=== PATIENT | male | born 1945 | race Caucasian/White ===

== ENCOUNTER 2019-03-11 04:55 | Inpatient (IN) | payer MEDICARE, BC ==
[2019-03-11] MEDS ORDERED: methylPREDNISolone Sod Succ/PF 125 MG/2 ML VIAL ONE (04:59)
[2019-03-11] MEDS ORDERED: diphenhydrAMINE 50 MG/ML VIAL ONE (04:59)
[2019-03-11] MEDS ORDERED: Famotidine/PF 20 mg/2ml Vial ONE (05:15)
[2019-03-11] MEDS ORDERED: EPINEPHrine 1 MG/ML AMP ONE (05:16)
[2019-03-11 06:08] LABS: Hemoglobin 17.2 g/dL (14.0-18.0); Mean Corpuscular HGB CONC 32.6 g/dL (32.0-36.0); Mean Corpuscular Hemoglobin 30.7 pg (27.0-31.0); Mean Corpuscular Volume 94.3 fL (78.0-98.0); Mean Platelet Volume 8.7 fL (7.4-10.4); Platelet Count 254 thou/uL (130-400); RBC Distribution Width 11.9 % (11.5-14.5); Red Blood Cell (RBC) Count 5.59 mill/uL (4.70-6.10); White Blood Cell (WBC) Count 15.7 thou/uL (4.8-10.8)
[2019-03-11 06:09] LABS: ALT (SGPT) 13 U/L (8-55); AST (SGOT) 13 U/L (5-34); Albumin 4.3 g/dL (3.4-4.8); Alkaline Phosphatase 100 U/L (40-110); Anion Gap 14 mmol/L (10-20); BUN (Urea Nitrogen) 12 mg/dL (8.4-25.7); Bilirubin, Total 1.1 mg/dL (0.2-1.2); Calc. Creatinine Clearance 0 mL/min (70-130); Calcium 9.6 mg/dL (7.8-10.44); Carbon Dioxide 19 mmol/L (23-31); Chloride 105 mmol/L (98-107); Estimated GFR-MDRD 56; Globulin 2.6 g/dL (2.4-3.5); Glucose 201 mg/dL (83-110); Potassium 4.7 mmol/L (3.5-5.1); Protein, Total 6.9 g/dL (5.8-8.1); Sodium 133 mmol/L (136-145)
[2019-03-11 06:31] LABS: Band 12 % (5-11); Lymphocytes 3 % (21-51); MDiff Complete? YES; Monocytes 6 % (0-10); Neutrophil 79 % (42-75)
[2019-03-11 10:30] VITALS: BMI 29.8
[2019-03-11] MEDS ORDERED: HumaLOG 300 UNITS/3 ML VIAL SC PRN ×2 (11:05)
[2019-03-11] MEDS ORDERED: Bisacodyl 10 MG SUPP PR PRN (11:05)
[2019-03-11] MEDS ORDERED: Acetaminophen 325 MG TAB PO PRN (11:05)
[2019-03-11] MEDS ORDERED: Senokot S 8.6-50 MG TAB PO PRN (11:05)
[2019-03-11] MEDS ORDERED: Dextrose 50% Abboject 50 ML SYRINGE SLOW IVP PRN (11:05)
[2019-03-11] MEDS ORDERED: Dextrose 5% in Water 1,000 ML IV PRN (11:05)
[2019-03-11] MEDS: Sodium Chloride 0.9% 1,000 ML IV SCH ×2 (12:01→22:13)
[2019-03-11] MEDS: diphenhydrAMINE 50 MG/ML VIAL IVP SCH ×3 (12:01→23:07)
[2019-03-11] MEDS: methylPREDNISolone Sod Succ 40 MG VIAL IVP SCH ×3 (12:02→23:09)
--- NOTE | 2019-03-11 13:59 | HP ---
REASON FOR ADMISSION: Angioedema. HISTORY OF PRESENTING ILLNESS: The patient gives history of developing hives in Tuesday morning. This was seen underneath both his arms, chest wall, torso, hips, and back of his legs. He took 2 tablets of Benadryl every 4 hours from Tuesday 11:00 a.m. He is taking it on the clock at 11:00 a.m., 03:00 p.m., 07:00 p.m., and 11:00 p.m. As his hives and itching got worse, he went to [facility] ER. He was given IV 1 short of steroids and was given prescriptions for Benadryl and Pepcid and sent home. After going home, the patient's lips and tongue started to swell up. His got concerned and around 04:30 a.m., the patient arrived at emergency room here. Currently, he is able to breathe well. He also ate his breakfast this morning. He has not started any new medications. He ate a mixture of new food, which was in a powder form, which is the only thing that he ate. The exact nature of the powder, the will bring the label. He also mentions that he has had similar symptoms 12 years back, but no tongue or lip swelling, that went away by itself. PAST MEDICAL AND SURGICAL HISTORY: 1. History of sensorineural deafness. 2. CABG for 5-vessel disease in 2009. 3. He has had 2 ablations for atrial fibrillation, one in 2011 and another in 2016. 4. Dyslipidemia. CURRENT MEDICATIONS: 1. Atorvastatin 40 mg p.o. at bedtime. 2. Aspirin 325 mg p.o. at bedtime. 3. CoQ10 of 200 mg p.o. daily. ALLERGIES: NO KNOWN DRUG ALLERGIES. PERSONAL HISTORY: Does not abuse alcohol or drugs. No history of smoking. He ambulates by himself. Lives with his . FAMILY HISTORY: Mother 12 hours after his likely from hemorrhage. Father at the age of 68 years, he in a correction, this happened while he was eating his lunch. CODE STATUS: Full. POWER OF DIETETIC TECHNICIAN REGISTERED: His . REVIEW OF SYSTEMS: CONSTITUTIONAL: Negative for weight loss or gain, ability to conduct usual activities. SKIN: Negative for rash, itching. EYES: Negative for double vision, pain. ENT/MOUTH: Negative for nose bleeding, neck stiffness, pain, tenderness. CARDIOVASCULAR: Negative for palpitations, dyspnea on exertion, orthopnea. RESPIRATORY: Negative for shortness of breath, wheezing, cough, hemoptysis, fever or night sweats. GASTROINTESTINAL: Negative for poor appetite, abdominal pain, heartburn, nausea, vomiting, constipation, or diarrhea. GENITOURINARY: Negative for urgency, frequency, dysuria, nocturia. MUSCULOSKELETAL: Negative for pain, swelling. NEUROLOGIC/PSYCHIATRIC: Negative for anxiety, depression. ALLERGY/IMMUNOLOGIC: Negative for skin rash, bleeding tendency. PHYSICAL EXAMINATION: GENERAL: The patient is a 74-year-old male, who is in moderate distress from itching. VITAL SIGNS: Blood pressure 160/94, pulse 98 per minute, respiratory rate 18 per minute, saturating 96% on room air, temperature is 98.6 degrees Fahrenheit. NECK: Supple. No elevated JVD. HEENT: Eyes; extraocular muscles intact. Pupils reacting to light. Oral cavity, mucous membranes are dry. There is swelling of tongue and both lips with mild swelling on the cheek. There is no swelling of uvula or posterior pharynx as far as I can see. CARDIOVASCULAR: S1, S2 heard. Regular rhythm. RESPIRATORY: Air entry 1+ bilateral. No rales or rhonchi. ABDOMEN: Soft. Bowel sounds heard. No tenderness, rigidity, or guarding. EXTREMITIES: No peripheral edema or calf tenderness. VASCULAR: Peripheral pulses 1+ bilateral. No ischemic ulcerations or gangrene. CENTRAL NERVOUS SYSTEM: No gross focal deficits noted. The patient is alert, awake, and oriented well. PSYCHIATRIC: The patient's mood is euthymic. No hallucinations or delusions. SKIN: The patient has urticarial lesions, urticarial wheals seen on the forehead, cheeks, anterior chest, lower back, underneath his axilla, and thighs at present. LABORATORY DATA: EKG done shows normal sinus rhythm at 97 beats per minute. White count of 15, H and H 17 and 52, platelet count 254, MCV is 94 with 79% neutrophils, 12% bands. Sodium 133, bicarb 19, BUN 12, creatinine 1.26, serum glucose 201. Troponin x1 negative. Liver enzymes within normal limits. Albumin 4.3. CLINICAL IMPRESSION AND PLAN: The patient will be admitted to telemetry under observation for severe urticaria with features of angioedema with lip and tongue swelling now. This likely might be related to the new powder that he ate the day before. He states he is not allergic to peanuts, but the powder had other ingredients in it. As far as he knows, he was not bitten by a bee or any other insects. He has not started any new medications. He has had similar episode 12 years back with no angioedema features. He will be on normal saline 100 mL/hour, Solu-Medrol 40 mg IV q.6 hourly, Benadryl 25 mg q.6 hourly, Pepcid 20 mg IV q.12 hourly. We will continue his home dose of Lipitor and CoQ10. He is currently maintaining airway and will be closely monitored for possible worsening, in which case he will be moved to ICU then. For now, we will monitor him on telemetry. Job ID: [id number]
[2019-03-11] MEDS: Famotidine/PF 20 mg/2ml Vial SLOW IVP SCH (20:17)
[2019-03-11] MEDS: Atorvastatin Calcium 40 MG TAB PO SCH (20:17)
[2019-03-12] MEDS: methylPREDNISolone Sod Succ 40 MG VIAL IVP SCH (05:07)
[2019-03-12] MEDS: diphenhydrAMINE 50 MG/ML VIAL IVP SCH (05:07)
[2019-03-12 06:21] LABS: Anion Gap 14 mmol/L (10-20); BUN (Urea Nitrogen) 22 mg/dL (8.4-25.7); Calc. Creatinine Clearance 63 mL/min (70-130); Calcium 8.9 mg/dL (7.8-10.44); Carbon Dioxide 21 mmol/L (23-31); Chloride 105 mmol/L (98-107); Estimated GFR-MDRD 51; Glucose 190 mg/dL (83-110); Potassium 5.2 mmol/L (3.5-5.1); Sodium 135 mmol/L (136-145)
[2019-03-12 06:30] LABS: Band 42 % (5-11); Hemoglobin 17.2 g/dL (14.0-18.0); Lymphocytes 14 % (21-51); MDiff Complete? YES; Mean Corpuscular HGB CONC 32.2 g/dL (32.0-36.0); Mean Corpuscular Hemoglobin 30.6 pg (27.0-31.0); Mean Platelet Volume 8.4 fL (7.4-10.4); Metamyelocyte 1 % (0-0); Monocytes 3 % (0-10); Myelocyte 1 % (0-0); Neutrophil 39 % (42-75); Platelet Count 272 thou/uL (130-400); RBC Distribution Width 12.1 % (11.5-14.5); Red Blood Cell (RBC) Count 5.63 mill/uL (4.70-6.10); White Blood Cell (WBC) Count 7.2 thou/uL (4.8-10.8)
[2019-03-12] MEDS: Sodium Chloride 0.9% 1,000 ML IV SCH (08:11)
[2019-03-12] MEDS: Famotidine/PF 20 mg/2ml Vial SLOW IVP SCH (09:20)
[2019-03-12] MEDS: Enoxaparin Sodium 40 MG/0.4 ML SYRINGE SC SCH (09:20)
[2019-03-12] MEDS: Ubidecarenone 50 MG CAP PO SCH (09:20)
[2019-03-12] MEDS ORDERED: predniSONE 20 MG TAB PO SCH (11:15)
--- NOTE | 2019-03-12 12:20 | PDOC.HOSPP ---
- Subjective Encounter Date: 03/12/19 Encounter Time: 09:45 Subjective: still has rash/ urticaria. No trouble swallowing or breathing lip and tongue swelling have come down - Objective Vital Signs & Weight: Vital Signs (12 hours) Temp Pulse Resp BP Pulse Ox 03/12/19 08:00 97.9 F 114 H 20 116/76 95 03/12/19 05:03 99.1 F 108 H 20 130/73 95 Weight Weight 208 lb I&O: 03/11/19 03/12/19 03/13/19 06:59 06:59 06:59 Intake Total 3909 557 Balance 3909 557 Result Diagrams: 03/12/19 05:38 03/12/19 05:38 Additional Labs: Accuchecks 03/12/19 03/11/19 03/11/19 10:35 20:39 16:45 POC Glucose 199 H 251 H 181 H Hospitalist ROS - Medication Medications: Active Medications Generic Name Dose Route Start Last Admin Trade Name Freq PRN Reason Stop Dose Admin Atorvastatin Calcium 40 mg 03/11/19 21:00 03/11/19 20:17 Lipitor PO 40 mg QPM JOSHUA Administration Coenzyme Q10 200 mg 03/12/19 09:00 03/12/19 09:20 Coenzyme Q10 PO 200 mg DAILY JOSHUA Administration Enoxaparin Sodium 40 mg 03/12/19 09:00 03/12/19 09:20 Lovenox SC 40 mg 0900 JOSHUA Administration - Exam General Appearance: awake alert Eye: PERRL, anicteric sclera Eye - other findings: facial edema+ ENT: no oropharyngeal lesions, moist mucosa Neck: supple, no JVD Heart: RRR, no murmur Respiratory: no wheezes, no rales Gastrointestinal: soft, non-tender, non-distended, normal bowel sounds Extremities: no cyanosis, no edema Skin - other findings: has urticarial rash over back, chest, axillae. Neurological: cranial nerve grossly intact, no focal deficits Psychiatric: normal affect, A&O x 3 Hosp A/P (1) Angioedema Code(s): T78.3XXA - ANGIONEUROTIC EDEMA, INITIAL ENCOUNTER Status: Acute Qualifiers: Encounter type: subsequent encounter Qualified Code(s): T78.3XXD - Angioneurotic edema, subsequent encounter (2) Urticaria Code(s): L50.9 - URTICARIA, UNSPECIFIED Status: Acute (3) CAD (coronary artery disease) Code(s): I25.10 - ATHSCL HEART DISEASE OF [place] CORONARY ARTERY W/O ANG PCTRS Status: Chronic Qualifiers: Coronary Disease-Associated Artery/Lesion type: bypass graft [place] vs. transplanted heart: [place] heart Associated angina: without angina Qualified Code(s): I25.810 - Atherosclerosis of coronary artery bypass graft(s) without angina pectoris (4) Dyslipidemia Code(s): E78.5 - HYPERLIPIDEMIA, UNSPECIFIED Status: Chronic - Plan on benadryl, pepcid and prednisone dc iv fluids needs close monitoring for airway continue home meds lipitor and Coq10. change status to inpatient To ambulate as tolerated
[2019-03-12] MEDS: diphenhydrAMINE 25 MG CAP PO SCH ×2 (14:41→20:28)
--- NOTE | 2019-03-12 14:41 | RAD ---
PORTABLE UPRIGHT FRONTAL CHEST RADIOGRAPH: 03/12/2019 HISTORY: Evaluate for pulmonary parenchymal infiltrate. COMPARISON: None. FINDINGS: The lungs are clear. The heart and mediastinal contours are unremarkable. Midline sternotomy wires ar e present. IMPRESSION: No acute findings. POS: [facility]
[2019-03-12] MEDS: Atorvastatin Calcium 40 MG TAB PO SCH (20:28)
[2019-03-12] MEDS: Famotidine 20 MG TAB PO SCH (20:28)
[2019-03-12] MEDS ORDERED: diphenhydrAMINE 25 MG CAP PO SCH (21:00)
[2019-03-13] MEDS ORDERED: predniSONE 20 MG TAB PO SCH (08:00)
[2019-03-13] MEDS: diphenhydrAMINE 25 MG CAP PO SCH (09:26)
[2019-03-13] MEDS: Enoxaparin Sodium 40 MG/0.4 ML SYRINGE SC SCH (09:26)
[2019-03-13] MEDS: Ubidecarenone 50 MG CAP PO SCH (09:26)
[2019-03-13] MEDS: Famotidine 20 MG TAB PO SCH (09:27)
[2019-03-13 12:14] VITALS: BP 114/57; TEMP 98.6
--- NOTE | 2019-03-13 18:04 | DIS ---
DATE OF ADMISSION: 03/11/2019 DATE OF DISCHARGE: 03/13/2019 DISCHARGE DISPOSITION: Home. PRIMARY DISCHARGE DIAGNOSIS: Angioedema with urticaria, resolving. SECONDARY DISCHARGE DIAGNOSES: Coronary artery disease and dyslipidemia. PROCEDURES DONE DURING HOSPITALIZATION: Chest x-ray done showed no acute cardiopulmonary abnormalities. Blood cultures x2, no growth. Urine culture, no growth. White count of 15 on arrival, discharge numbers of 7; H and H 17 and 53; platelet count 272. BUN 22, creatinine 1.3. DISCHARGE MEDICATIONS: 1. Atorvastatin 40 mg p.o. q.p.m. 2. CoQ10 of 200 mg p.o. daily. 3. Benadryl 25 mg p.o. three times daily for 3 days, then daily for 3 days, and to stop. 4. Pepcid 20 mg twice daily. 5. Prednisone 10 mg twice daily for 4 days, then daily for 5 days, then half a tablet for 4 days and to discontinue. ALLERGIES: NO KNOWN DRUG ALLERGIES. DISCHARGE PLAN: An appointment with Dr. Calderon Valadez, Allergy-pigment weigher has been set up on 03/27/2019 at 9 a.m. He needs to follow up with his primary care physician in 1 week. BRIEF COURSE DURING HOSPITALIZATION: The patient initially came in with complaints of severe itching with wheals and flare all over his body. The patient also developed lip edema and tongue swelling along with the inner cheek edema. He was maintaining his airway and was able to swallow. In view of this, he was admitted to telemetry. He has had close monitoring of his airway with no compromise noted. His tongue, cheek, and lip swelling have resolved. The patient's itching has come down. His wheal and flare and urticarial rash are also slowly resolving. He is given prescriptions for tapering prednisone and Benadryl. A new appointment with Allergy-pigment weigher, Dr. Calderon Valadez has been set up on the at 9 a.m. in March. He has to be off Benadryl for at least 5 to 7 days prior to going for the appointment. He is hemodynamically stable and will be shortly discharged home. Please note, I have seen and examined the patient on the day of discharge. Job ID: [id number]
[2019-03-14 23:07] LABS: Mycoplasma pneumoniae IgG AB 384 U/mL (0-99); Mycoplasma pneumoniae IgM AB Less than 770 U/mL (0-769)
== END 2019-03-13 13:01 | disposition home or self-care (01) | DRG 916 ==
LOC: ERS 04:55 → 2SW 08:10 → OBSVTOIN 08:10
PROVIDERS: ADMIT Internal Medicine; ATTEND Internal Medicine
DX: T78.3XXA Angioneurotic edema, initial encounter (principal); I25.10 Atherosclerotic heart disease of native coronary artery without angina pectoris; E78.5 Hyperlipidemia, unspecified; I48.91 Unspecified atrial fibrillation; Z95.1 Presence of aortocoronary bypass graft
CPT/HCPCS: 36415; 36416; 71045; 80048; 80053; 84484; 85025; 87040; 87086; 93005; 96372; 96374; J0171; J1200; J1650; J2920; J2930; J7512; Q0163; S0028

== ENCOUNTER 2020-07-11 10:51 | Observation (INO) | payer BC, MEDICARE ==
[2020-07-11] MEDS ORDERED: Diazepam 5 MG TAB ONE (11:19)
[2020-07-11] MEDS ORDERED: Meclizine HCl 25 MG TAB ONE (11:20)
[2020-07-11 11:27] LABS: #Basophils 0.1 thou/uL (0.0-0.2); #Eosinphils 0.2 thou/uL (0.0-0.7); #Lymphocytes 2.1 thou/uL (1.20-3.40); #Monocytes 0.7 thou/uL (0.11-0.59); #Neutrophils 5.4 thou/uL (1.40-6.50); %Eosinophils 2.4 % (0.0-10.0); %Lymphocytes 24.5 % (21.0-51.0); Hemoglobin 15.3 g/dL (14.0-18.0); Mean Corpuscular HGB CONC 33.9 g/dL (32.0-36.0); Mean Corpuscular Hemoglobin 31.9 pg (27.0-31.0); Mean Corpuscular Volume 94.1 fL (78.0-98.0); Platelet Count 224 thou/uL (130-400); RBC Distribution Width 11.6 % (11.5-14.5); Red Blood Cell (RBC) Count 4.79 mill/uL (4.70-6.10); White Blood Cell (WBC) Count 8.4 thou/uL (4.8-10.8)
[2020-07-11 11:49] LABS: ALT (SGPT) 13 U/L (8-55); AST (SGOT) 16 U/L (5-34); Albumin 3.8 g/dL (3.4-4.8); Alkaline Phosphatase 85 U/L (40-110); Anion Gap 18 mmol/L (10-20); BUN (Urea Nitrogen) 17 mg/dL (8.4-25.7); Bilirubin, Total 0.8 mg/dL (0.2-1.2); Calc. Creatinine Clearance 0 mL/min (70-130); Calcium 8.8 mg/dL (7.8-10.44); Carbon Dioxide 19 mmol/L (23-31); Chloride 104 mmol/L (98-107); Globulin 2.8 g/dL (2.4-3.5); Glucose 209 mg/dL (83-110); Potassium 3.9 mmol/L (3.5-5.1); Protein, Total 6.6 g/dL (5.8-8.1); Sodium 137 mmol/L (136-145)
--- NOTE | 2020-07-11 13:50 | CT ---
CT BRAIN NONCONTRAST: DATE: 07/11/2020 HISTORY: 75-year-old male with dizziness, nausea, vomiting, and generalized weakness. FINDINGS: There is no evidence of acute intra-axial or extra-axial hemorrhage. There is no midline shift or any other mass effect. There is no extra-axial fluid collection. There is no evidence of obstructive hydrocephalus. Calvarium is intact. IMPRESSION: No acute intracranial findings.
[2020-07-11] MEDS ORDERED: Acetaminophen 325 MG TAB PO PRN (15:03)
[2020-07-11] MEDS ORDERED: Ondansetron PF 4 MG/2 ML Vial IVP PRN (15:03)
[2020-07-11 15:51] VITALS: BMI 29.7
--- NOTE | 2020-07-11 16:12 | PDOC.HHP ---
Hospitalist HPI Weakness, dizziness History of Present Illness: Patient is 75-year-old male with PMH of CAD and A. fib (s/p cardiac ablation x2) who presents to the ED with CC of dizziness and generalized weakness. Patient states he was sitting this morning and drinking coffee and eating cinnamon roll for his breakfast when he started feeling generally weak, clammy, and dizzy. He also had few episodes of nausea and vomiting afterwards. He states the room was not spinning but just felt "woozy". He denies headache, fever, chest pain, or shortness of breath. Allergies/Adverse Reactions: Allergy/AdvReac Type Severity Reaction Status Date / Time No Known Allergies Allergy Verified 08/05/19 18:03 Home Medications: Medication Instructions Recorded Confirmed Type Atorvastatin Calcium [Lipitor] 40 mg PO QPM 11/01/15 07/11/20 History Ubidecarenone [Co Q-10] 200 mg PO DAILY 11/01/15 07/11/20 History Aspirin [Ben Chewable] 81 mg PO QPM 07/11/20 07/11/20 History Cholecalciferol (Vitamin D3) 5,000 unit PO DAILY 07/11/20 07/11/20 History [Vitamin D3] Past History: PMHx: CAD and A. fib (s/p cardiac ablation x2) PShx: CABG, Cardiac ablation Family hx: Maternal grandfather: CAD Shx: Never smoker. Mike alcohol or drug use Hospitalist HPI ROS Constitutional: reports: chills. denies: fever Eyes: denies: vision change ENT: denies: throat pain Respiratory: denies: cough, shortness of breath Cardiovascular: denies: chest pain Gastrointestinal: reports: nausea, vomiting Genitourinary: denies: dysuria, frequency Musculoskeletal: denies: back pain Skin: denies: rash Neurological: reports: weakness Hospitalist Exam Vitals: Weight Weight 207 lb 11.2 oz Hospitalist Results Result Diagrams: 07/11/20 11:15 07/11/20 11:15 Lab results: Laboratory Last Values WBC 8.4 thou/uL (4.8-10.8) 07/11/20 11:15 RBC 4.79 mill/uL (4.70-6.10) 07/11/20 11:15 Hgb 15.3 g/dL (14.0-18.0) 07/11/20 11:15 Hct 45.0 % (42.0-52.0) 07/11/20 11:15 MCV 94.1 fL (78.0-98.0) 07/11/20 11:15 MCH 31.9 pg (27.0-31.0) H 07/11/20 11:15 MCHC 33.9 g/dL (32.0-36.0) 07/11/20 11:15 RDW 11.6 % (11.5-14.5) 07/11/20 11:15 Plt Count 224 thou/uL (130-400) 07/11/20 11:15 MPV 8.0 fL (7.4-10.4) 07/11/20 11:15 Neutrophils % 64.0 % (42.0-75.0) 07/11/20 11:15 Lymphocytes % 24.5 % (21.0-51.0) 07/11/20 11:15 Monocytes % 8.0 % (0.0-10.0) 07/11/20 11:15 Eosinophils % 2.4 % (0.0-10.0) 07/11/20 11:15 Basophils % 1.0 % (0.0-1.0) 07/11/20 11:15 Neutrophils # 5.4 thou/uL (1.40-6.50) 07/11/20 11:15 Lymphocytes # 2.1 thou/uL (1.20-3.40) 07/11/20 11:15 Monocytes # 0.7 thou/uL (0.11-0.59) H 07/11/20 11:15 Eosinophils # 0.2 thou/uL (0.0-0.7) 07/11/20 11:15 Basophils # 0.1 thou/uL (0.0-0.2) 07/11/20 11:15 Sodium 137 mmol/L (136-145) 07/11/20 11:15 Potassium 3.9 mmol/L (3.5-5.1) 07/11/20 11:15 Chloride 104 mmol/L (98-107) 07/11/20 11:15 Carbon Dioxide 19 mmol/L (23-31) L 07/11/20 11:15 Anion Gap 18 mmol/L (10-20) 07/11/20 11:15 BUN 17 mg/dL (8.4-25.7) 07/11/20 11:15 Creatinine 1.19 mg/dL (0.7-1.3) 07/11/20 11:15 Estimated GFR (MDRD) 59 07/11/20 11:15 Glucose 209 mg/dL (83-110) H 07/11/20 11:15 POC Glucose 113 mg/dL (70-100) H 07/11/20 15:03 Calcium 8.8 mg/dL (7.8-10.44) 07/11/20 11:15 Total Bilirubin 0.8 mg/dL (0.2-1.2) 07/11/20 11:15 AST 16 U/L (5-34) 07/11/20 11:15 ALT 13 U/L (8-55) 07/11/20 11:15 Alkaline Phosphatase 85 U/L (40-110) 07/11/20 11:15 Troponin I Less than 0.010 ng/mL (< 0.028) 07/11/20 11:15 Serum Total Protein 6.6 g/dL (5.8-8.1) 07/11/20 11:15 Albumin 3.8 g/dL (3.4-4.8) 07/11/20 11:15 Globulin 2.8 g/dL (2.4-3.5) 07/11/20 11:15 Albumin/Globulin Ratio 1.4 g/dL (1.2-2.2) 07/11/20 11:15 CT scan - head Additional Comments: CT BRAIN NONCONTRAST: DATE: 07/11/2020 HISTORY: 75-year-old male with dizziness, nausea, vomiting, and generalized weakness. FINDINGS: There is no evidence of acute intra-axial or extra-axial hemorrhage. There is no midline shift or any other mass effect. There is no extra-axial fluid collection. There is no evidence of obstructive hydrocephalus. Calvarium is intact. IMPRESSION: No acute intracranial findings EKG Status: image reviewed by me (NSR. Vent rate: 74) Hospitalist H&P A/P (1) Dizziness Code(s): R42 - DIZZINESS AND GIDDINESS Status: Acute Assessment and Plan: Patient presented with dizziness. CT head showed no acute intracranial abnormalities. EKG showed NSR. Per ED physician, patient's HR at times went down to the 50s while in the ED. Plan: -Telemetry -Orthostatic vitals -MRI brain wo contrast -Echo (2) Hyperglycemia Code(s): R73.9 - HYPERGLYCEMIA, UNSPECIFIED Status: Acute Assessment and Plan: Initial BG elevated, patient has no hx of diabetes. Repeat one was better without treatment. Plan: -Hgb A1c (3) A-fib Code(s): I48.91 - UNSPECIFIED ATRIAL FIBRILLATION Status: Chronic Assessment and Plan: Currently NSR with controlled rate. He is on Aspirin. Not on rate controlling med Plan: -cont Aspirin
[2020-07-11] MEDS ORDERED: Atorvastatin Calcium 40 MG TAB PO SCH (21:00)
[2020-07-11 22:21] LABS: SARS-CoV-2 PCR by NAA Not Detected (NotDetected)
[2020-07-12 00:17] LABS: Troponin I 0.011 ng/mL (< 0.028)
[2020-07-12 04:36] LABS: #Basophils 0.1 thou/uL (0.0-0.2); #Eosinphils 0.1 thou/uL (0.0-0.7); #Lymphocytes 2.9 thou/uL (1.20-3.40); #Monocytes 0.8 thou/uL (0.11-0.59); #Neutrophils 6.8 thou/uL (1.40-6.50); %Basophils 0.7 % (0.0-1.0); %Eosinophils 1.1 % (0.0-10.0); %Lymphocytes 27.3 % (21.0-51.0); %Monocytes 7.2 % (0.0-10.0); %Neutrophils 63.8 % (42.0-75.0); Mean Corpuscular HGB CONC 33.8 g/dL (32.0-36.0); Mean Corpuscular Volume 94.7 fL (78.0-98.0); Mean Platelet Volume 8.8 fL (7.4-10.4); Platelet Count 221 thou/uL (130-400); RBC Distribution Width 11.6 % (11.5-14.5); Red Blood Cell (RBC) Count 4.67 mill/uL (4.70-6.10); White Blood Cell (WBC) Count 10.7 thou/uL (4.8-10.8)
[2020-07-12 04:47] LABS: Hemoglobin A1c 5.4 % (4.0-6.0)
[2020-07-12 05:03] LABS: Anion Gap 14 mmol/L (10-20); BUN (Urea Nitrogen) 13 mg/dL (8.4-25.7); Calc. Creatinine Clearance 85 mL/min (70-130); Carbon Dioxide 22 mmol/L (23-31); Chloride 107 mmol/L (98-107); Glucose 101 mg/dL (83-110); Potassium 4.2 mmol/L (3.5-5.1); Sodium 139 mmol/L (136-145)
[2020-07-12] MEDS ORDERED: Aspirin 81 mg Enteric Coated Tablet PO SCH (09:00)
[2020-07-12] MEDS ORDERED: Enoxaparin Sodium 30 MG/0.3 ML SYRINGE SC SCH (09:00)
--- NOTE | 2020-07-12 13:03 | MRI ---
EXAM: MRI Brain WO Con PROVIDED CLINICAL HISTORY: Dizziness COMPARISON: None FINDINGS: The ventricular system appears normal in size and morphology. There is no evidence for intracranial h emorrhage, mass or mass effect. There is no evidence for restricted diffusion to suggest recent infarction. Appropriate flow voids are seen within the major intracranial vessels. The extracranial s oft tissues and calvarial marrow signal appear unremarkable. IMPRESSION: No evidence for an acute intracranial abnormality.
--- NOTE | 2020-07-12 14:36 | PDOC.DS.DS ---
Provider Date of Admission: 07/11/20 13:15 Date of Discharge: 07/12/20 Admitting Provider: Josy Rodrigues MD Consultations: None Course Hospital Course: Patient is a pleasant 75 years old gentleman who has significant past medical history of CAD with status post CABG, paroxysmal atrial fib with status post cardiac ablation x2, the last one was in 2016, and dyslipidemia, who presented to ED with complaint of acute onset of dizziness, and generalized weakness. Patient subsequently had several episodes of vomiting. There was no focal weakness, or dysarthria. He was brought in to the ED for further evaluation. Given his symptomatology, he was subsequently admitted for further stroke work-up. He was monitored on telemetry, serial cardiac enzyme was negative. His Echo showed preserved EF, chronic diastolic heart failure, no evidence of volume overload. Further stroke work-up was unremarkable including negative MRI. His symptom was resolved since he was admitted. He was monitoring telemetry, no evidence of arrhythmia. His hemoglobin A1c was 5.4. He is tolerating diet. No recurrent symptoms. He has been ambulating well. He has been followed by Dr. Woodward from cardiology. At this time, patient is stable to discharge home, and follow-up with his PCP/cardiology for ongoing management medical mgt. Pertinent Studies: 2D echo also left ventricular size normal on. Normal left ventricular wall thickness. Ejection fraction, 60-65%. Grade 2/3 diastolic dysfunction. No regional wall motion abnormalities. MRI of the brain negative for acute intracranial abnormalities CT head: No acute intracranial findings Resuscitation Status: 07/11/20 15:03 Resuscitation Status Routine Resuscitation Status: FULL: Full Resuscitation Discussed with: Patient Lab Results: 07/12/20 03:51 07/12/20 03:51 Abnormal Lab Results - Last 48 hrs 07/11/20 11:15: MCH 31.9 H, Monocytes # 0.7 H 07/11/20 11:15: Carbon Dioxide 19 L 07/12/20 03:51: Carbon Dioxide 22 L 07/12/20 03:51: RBC 4.67 L, MCH 32.0 H, Neutrophils # 6.8 H, Monocytes # 0.8 H Vitals: Vital Signs (12 hours) Temp Pulse Resp BP Pulse Ox 07/12/20 11:01 98.5 F 72 18 111/68 96 07/12/20 08:34 98.5 F 62 18 118/69 96 07/12/20 03:55 98.4 F 77 18 117/74 96 07/12/20 03:21 97 Weight Weight 207 lb 11.2 oz Physical Exam: The patient was seen and examined on the day of discharge. General Appearance: NAD Eye: PERRL ENT: normocephalic atraumatic Neck: supple Respiratory: CTAB Cardiovascular: RRR Gastrointestinal: soft, non-tender Extremities: no cyanosis Skin: normal turgor Neurological: cranial nerve grossly intact Musculoskeletal: normal tone, normal strength Problem Time Spent in discharge related activities (mins): 32 (1) Dizziness Code(s): R42 - DIZZINESS AND GIDDINESS Status: Acute (2) Hyperglycemia Code(s): R73.9 - HYPERGLYCEMIA, UNSPECIFIED Status: Acute (3) Pre-syncope Status: Acute (4) A-fib Code(s): I48.91 - UNSPECIFIED ATRIAL FIBRILLATION Status: Chronic (5) CAD (coronary artery disease) Code(s): I25.10 - ATHSCL HEART DISEASE OF [place] CORONARY ARTERY W/O ANG PCTRS Status: Chronic Qualifiers: Coronary Disease-Associated Artery/Lesion type: bypass graft [place] vs. transplanted heart: [place] heart Associated angina: without angina Qualified Code(s): I25.810 - Atherosclerosis of coronary artery bypass graft(s) without angina pectoris (6) Dyslipidemia Code(s): E78.5 - HYPERLIPIDEMIA, UNSPECIFIED Status: Chronic Plan Home Medications: Medication Instructions Recorded Confirmed Type Atorvastatin Calcium [Lipitor] 40 mg PO QPM 11/01/15 07/11/20 History Ubidecarenone [Co Q-10] 200 mg PO DAILY 11/01/15 07/11/20 History Aspirin [Ben Chewable Aspirin] 81 mg PO QPM 07/11/20 07/11/20 History Cholecalciferol (Vitamin D3) 5,000 unit PO DAILY 07/11/20 07/11/20 History [Vitamin D3] Allergies: No Known Allergies Allergy (Verified 08/05/19 18:03) Discharge Instructions:: Follow up with PCP/Woodward in 2-4 weeks Activity:: Activity as Tolerated Disposition: HOME Quality CORE MEASURES:: N/A
[2020-07-12 17:40] VITALS: BP 126/68; TEMP 97.6
== END 2020-07-12 17:57 | disposition home or self-care (01) ==
LOC: ERS 10:51 → ERHOLD 13:15 → 2NO 15:29
PROVIDERS: ADMIT Internal Medicine; ATTEND Family Medicine
DX: R42 Dizziness and giddiness (principal); R53.1 Weakness; R73.9 Hyperglycemia, unspecified; R55 Syncope and collapse; I48.0 Paroxysmal atrial fibrillation; I25.10 Atherosclerotic heart disease of native coronary artery without angina pectoris; E78.5 Hyperlipidemia, unspecified; I50.32 Chronic diastolic (congestive) heart failure; I08.1 Rheumatic disorders of both mitral and tricuspid valves; Z79.82 Long term (current) use of aspirin; Z79.899 Other long term (current) drug therapy; Z95.1 Presence of aortocoronary bypass graft; Z20.822 Contact with and (suspected) exposure to COVID-19
CPT/HCPCS: 36415; 36416; 70450; 70551; 80048; 80053; 83036; 84484; 85025; 87635; 93005; 93306; 96372; G0378; J1650; U0003; U0005